=== PATIENT | female | born 1985 | race Caucasian/White ===

== ENCOUNTER 2018-02-01 21:30 | Emergency (ER) | END 2018-02-01 23:48 | disposition left against medical advice (07) ==

== ENCOUNTER 2018-04-27 22:36 | Emergency (ER) | END 2018-04-28 00:35 | disposition home or self-care (01) ==

== ENCOUNTER 2018-08-10 17:23 | Emergency (ER) | END 2018-08-11 00:25 | disposition home or self-care (01) ==

== ENCOUNTER 2018-09-05 14:28 | Emergency (ER) | payer SELFPAY ==
[~2018-09-05] VITALS: Ht 172.7 cm; Wt 95.2 kg
[~2018-09-05 14:28] MED LIST: LORA1TAB PO
[2018-09-05 14:31] VITALS: BP 124/57; PULSE 85; RESP 20; Ht 172.7 cm; Wt 95.2 kg
[2018-09-05] MEDS ORDERED: D-ME473S2 PO (17:06)
[2018-09-05] MEDS ORDERED: IBUP-1542 PO (17:06)
[2018-09-05] MEDS ORDERED: AZIT250T PO (17:06)
--- NOTE | 2018-09-05 17:09 | ERD ---
ER Documentation Chief Complaint Chief Complaint Complains of cough x 2 days HPI 33-year-old female presents with productive cough for last 3 days. She denies any fevers. She has body aches. She denies any chest pain, vomiting, abdominal pain. She is worried about spreading infection to her family. ROS All systems reviewed and are negative except as per history of present illness. Medications Home Meds Active Scripts Azithromycin* (Zithromax*) 250 Mg Tablet, 250 MG PO .ZPACK DIRECTED, #6 TAB TAKE 500 MG (2 TABS) THE FIRST DAY THEN 250 MG (1 TAB) DAYS 2-5 Prov:HERBIE ESCAMILLA MD 09/05/18 Ibuprofen* (Motrin*) 600 Mg Tab, 600 MG PO Q6, #20 TAB Prov:HERBIE ESCAMILLA MD 09/05/18 Dextromethorphan Hb-Promethazine Hcl* (Promethazine DM* Syrup) 473 Ml Syrup, 5 ML PO Q6 PRN for COUGH for 5 Days, ML Prov:HERBIE ESCAMILLA MD 09/05/18 Lorazepam* (Lorazepam*) 1 Mg Tablet, 1 MG PO Q8H PRN for ANXIETY, #10 TAB Prov:GILBERTO KIRKLAND 08/10/18 Allergies Allergies: Coded Allergies: No Known Allergy (Unverified , 09/05/18) PMhx/Soc Medical and Surgical Hx: pt denies Medical Hx, pt denies Surgical Hx History of Surgery: No Hx Neurological Disorder: No Hx Respiratory Disorders: No Hx Cardiac Disorders: No Hx Miscellaneous Medical Probl: No Hx Alcohol Use: Yes (OCCASSIONAL) Hx Substance Use: No Hx Tobacco Use: No FmHx Family History: No diabetes, No coronary disease, No other Physical Exam Vitals Vital Signs Date Temp Pulse Resp B/P (MAP) Pulse Ox O2 O2 Flow FiO2 Time Delivery Rate 09/05/18 98.4 85 20 124/57 98 14:31 (79) Physical Exam Const: No acute distress Head: Atraumatic Eyes: Normal Conjunctiva ENT: Normal External Ears, Nose and Mouth. TMs and oropharynx normal. Neck: Full range of motion. No meningismus. Resp: Clear to auscultation bilaterally. Coarse cough without rales, wheezing or retractions. Cardio: Regular rate and rhythm, no murmurs Abd: Soft, non tender, non distended. Normal bowel sounds Skin: No petechiae or rashes Back: No midline or flank tenderness Ext: No cyanosis, or edema Neur: Awake and alert Psych: Normal Mood and Affect Procedures/MDM She presents with URI symptoms and productive cough for last 3 days patient likely has viral URI. She will treated with promethazine and ibuprofen. Patient will be administered by request prescription for Zithromax to hold for 3-4 days. She may take for more productive cough otherwise allow viral illness to resolve. She has no evidence of hypoxemia, rest or distress, signs of pneumonia on exam. She has no complaints of chest pain or abdominal pain. The patient was stable with no new complaints during the ER course. Clinically, there is no current evidence to suggest meningitis, sepsis, acute abdomen, pneumonia, stroke, acute coronary syndrome, pulmonary embolism, aortic dissection or any other emergent condition appearing to require further evaluation or hospitalization. Patient counseled regarding my diagnostic impression and care plan. Prior to discharge all questions answered. Pt agrees w ith treatment plan and understands strict return precautions. Pt is instructed to follow up with primary care provider within 24-48 hours. Precautionary instructions provided including instructions to return to the ER if not improving or for any worsening or changing symptoms or concerns. Disclaimer: Inadvertent spelling and grammatical errors are likely due to EHR/dictation software use and do not reflect on the overall quality of patient care. Also, please note that the electronic time recorded on this note does not necessarily reflect the actual time of the patient encounter. Departure Diagnosis: Primary Impression: Cough Condition: Stable Patient Instructions: Bronchitis, Antiobiotic Treatment (Adult), Bronchitis, No Antibiotic (Adult) Referrals: NO PRIMARY,CARE PHYSICIAN (PCP) Additional Instructions: Okay to hold antibiotics 3-4 days take for increasing productive cough. Recheck otherwise for new or worsening symptoms. May be viral illness which will resolve without antibiotics. HERBIE ESCAMILLA MD Sep 05, 2018 17:09
== END 2018-09-05 17:12 | disposition home or self-care (01) ==
LOC: FTE 14:28
DX: R05 Cough (principal)
CPT/HCPCS: 99283

== ENCOUNTER 2018-11-10 18:51 | Emergency (ER) | payer SELFPAY ==
[~2018-11-10] VITALS: Ht 165.1 cm; Wt 93.9 kg
[~2018-11-10 18:51] MED LIST changes: +AZIT250T PO; +D-ME473S2 PO; +IBUP-1542 PO
[2018-11-10 19:32] VITALS: Ht 165.1 cm; Wt 93.9 kg
--- NOTE | 2018-11-10 23:05 | ERD ---
ER Documentation Chief Complaint Chief Complaint headache/blurry vision x 2 days. hx of migraine headache HPI This is a 33-year-old female who presents here in emerge department with comp laints of headache, blurry vision for about 2 days. No changes in her reading. No use of glasses or contact lenses. Stated that she has history of migraine. Stated that is similar to her migraine attacks. LMP: Stated it was last month. . Denies that this is the worst headache of her life, head injury, loss of consciousness, dizziness, neck pain, neck stiffness, throat pain, difficulty swallowing, difficulty breathing lying flat, shoulder pain, chest pain, back pain, abdominal pain, nausea, vomiting, constipation, diarrhea, urinary symptoms, or possibility being , loss of bowel and bladder control, trauma, injury, falls, difficulty walking due to pain, numbness or tingling sensation, calf pain, recent travel, recent major surgery in the last 3 weeks, calf pain, recent long travel, recent exposure to any illness, recent antibiotic use in the last 3 months, fever, chills, seizures. Past medical history: Surgical history: Social: Denies smoking, use of alcoholic beverages, use of illegal drugs. ROS All systems reviewed and are negative except as per history of present illness. Medications Home Meds Active Scripts Nobeelbgst-Fcpfhybblilpl-Bdhifflx* (Fioricet*) 50-300-40 Mg Capsule, 1 CAP PO Q4H PRN for migraine attack, #15 CAP Prov:PASILABAN,KLAR F 11/10/18 Ibuprofen* (Motrin*) 800 Mg Tab, 800 MG PO Q6H PRN for PAIN AND OR ELEVATED TEMP, #30 TAB Prov:PASILABAN,KLAR F 11/10/18 Meclizine Hcl* (Antivert*) 12.5 Mg Tab, 12.5 MG PO Q6H PRN for DIZZINESS, #20 TAB Prov:PASILABAN,KLAR F 11/10/18 Diphenhydramine Hcl* (Benadryl*) 25 Mg Cap, 25 MG PO Q6 PRN for ITCHING/RASH, #30 TAB Prov:PASILABAN,KLAR F 11/10/18 Metoclopramide* (Reglan*) 10 Mg Tablet, 10 MG PO Q6 PRN for NAUSEA AND/OR VOMITING, #20 TAB Prov:PASILABAN,KLAR F 11/10/18 Azithromycin* (Zithromax*) 250 Mg Tablet, 250 MG PO .ZPACK DIRECTED, #6 TAB TAKE 500 MG (2 TABS) THE FIRST DAY THEN 250 MG (1 TAB) DAYS 2-5 Prov:HERBIE ESCAMILLA MD 09/05/18 Ibuprofen* (Motrin*) 600 Mg Tab, 600 MG PO Q6, #20 TAB Prov:HERBIE ESCAMILLA MD 09/05/18 Dextromethorphan Hb-Promethazine Hcl* (Promethazine DM* Syrup) 473 Ml Syrup, 5 ML PO Q6 PRN for COUGH for 5 Days, ML Prov:HERBIE ESCAMILLA MD 09/05/18 Lorazepam* (Lorazepam*) 1 Mg Tablet, 1 MG PO Q8H PRN for ANXIETY, #10 TAB Prov:GILBERTO KIRKLAND 08/10/18 Allergies Allergies: Coded Allergies: No Known Allergy (Unverified , 09/05/18) PMhx/Soc History of Surgery: No Hx Neurological Disorder: No Hx Respiratory Disorders: No Hx Cardiac Disorders: No Hx Miscellaneous Medical Probl: No Hx Alcohol Use: Yes (OCCASSIONAL) Hx Substance Use: No Hx Tobacco Use: No Physical Exam Vitals Physical Exam No vesicular lesions. Const: No acute distress Head: Atraumatic. Normocephalic. Scalp is intact. No signs of direct trauma to head. No vesicular lesions. Eyes: Normal Conjunctiva. No visual field loss. There is mild light sensitivity. No icterus. No conjunctival injection. ENT: Normal External Ears, Nose and Mouth. Bilateral ears: TMs are not erythematous. No bleeding. No discharge. No hearing loss. No mastoid tenderness. Nose: There is no frontal or maxillary sinus tenderness to palpation. Throat: Uvula is in midline and nondisplaced. Tonsils are +1 bilaterally without redness without exudates. Tolerating secretions. Patent airway. Speaks full and clear sentences. No tripoding. Neck: Full range of motion. No meningismus. No nuchal rigidity. No signs of meningeal irritation. Resp: Clear to auscultation bilaterally. Cardio: Regular rate and rhythm, no murmurs Abd: Soft, non tender, non distended. Normal bowel sounds. Skin: No petechiae or rashes. Color appears normal for ethnicity. No skin tenting. No signs of severe dehydration.. Back: No midline or flank tenderness Ext: No cyanosis, or edema Neur: Awake and alert. No obvious facial droop. Equal pipe turner. Equal strength in bilateral upper and lower extremities. Follows commands. Able to bear radha ght left lower extremity. Able to bear weight on right lower extremity. Romberg test is negative. No neurological deficit. Psych: Normal Mood and Affect Results 24 hrs Laboratory Tests Test 11/10/18 23:12 11/10/18 23:16 Urine Color YELLOW Urine Clarity SLIGHTLY CLOUDY Urine pH 6.0 Urine Specific [place] 1.018 Urine Ketones NEGATIVE mg/dL Urine Nitrite NEGATIVE mg/dL Urine Bilirubin NEGATIVE mg/dL Urine Urobilinogen NEGATIVE mg/dL Urine Leukocyte Esterase NEGATIVE Marcie/ul Urine Microscopic RBC 2 /HPF Urine Microscopic WBC 1 /HPF Urine Squamous Epithelial Cells FEW /HPF Urine Bacteria FEW /HPF Urine Mucus FEW /HPF Urine Hemoglobin NEGATIVE mg/dL Urine Glucose NEGATIVE mg/dL Urine Total Protein NEGATIVE mg/dl POC Beta HCG, Qualitative NEGATIVE Current Medications Medications Dose Sig/Sonia Start Time Status Last (Trade) Ordered Route PRN Stop Time Admin Dose Reason Admin Sodium 1,000 ml @ Q1H ONCE 11/10/18 DC 11/10/18 Chloride 1,000 mls/hr IV 23:30 23:24 11/11/18 00:29 25 mg ONCE ONCE 11/10/18 DC 11/10/18 Diphenhydrami IV 23:30 23:24 ne HCl 11/10/18 23:31 (Benadryl) 10 mg ONCE ONCE 11/10/18 DC 11/10/18 Metoclopramid IV 23:30 23:24 e HCl 11/10/18 23:31 (Reglan) Sumatriptan 6 mg ONCE ONCE 11/10/18 DC 11/11/18 Succinate SC 23:30 00:22 (Imitrex) 11/10/18 23:31 Procedures/MDM Diagnostic tests: POC urine : Negative. Urinalysis: Reviewed. ED visual acuity: Right eye: 20/70. Left eye: 20/40. Bilateral eyes: 20/40. Treatment: Saline lock. Normal saline IV bolus. Reglan IV. Benadryl IV. Imitrex IM. Re-evaluation: No visual field loss. Denies headache. Denies dizziness. Romberg test is negative. Negative. No neurological deficit. Ambulatory with steady gait. Differential diagnosis I have low suspicion for subarachnoid hemorrhage, stroke, subdural hematoma, epidural hematoma, meningitis or sepsis. Final diagnosis: Migraine. Prescription: Antivert. Reglan. Fioricet. Motrin. Follow-up with PCP in the next 24-48 hours. PCP to refer patient to neurologist if symptoms persist. Come back here in the emergency department for any new symptoms or any worsening symptoms. All questions and concerns were answered. Patient and family members verbalized understanding and agreed with plan of care. Hemodynamically stable on discharge. Departure Diagnosis: Primary Impression: Migraine Condition: Stable Additional Instructions: Follow-up with PCP in the next 24-48 hours. PCP to refer patient to neurologist if symptoms persist. Come back here in the emergency department for any new symptoms or any worsening symptoms. GIOVANNY TRAMMELL Nov 10, 2018 23:05
[2018-11-10] MEDS ORDERED: SOD CHLORIDE 0.9% 1,000 ML IV ONE (23:30)
[2018-11-10] MEDS ORDERED: SUMATRIPTAN 6 MG/0.5 ML INJ SC ONE (23:30)
[2018-11-10] MEDS ORDERED: DIPHENHYDRAMINE 50 MG INJ IV ONE (23:30)
[2018-11-10] MEDS ORDERED: METOCLOPRAMIDE 10 MG INJ IV ONE (23:30)
[2018-11-10] MEDS ORDERED: METO10TA92 PO (23:37)
[2018-11-10] MEDS ORDERED: BEN25 PO (23:37)
[2018-11-10] MEDS ORDERED: IBUP800T48 PO (23:37)
[2018-11-10] MEDS ORDERED: MECL12.574 PO (23:37)
[2018-11-10] MEDS ORDERED: BUTA1CAP38 PO (23:38)
[2018-11-11 00:50] VITALS: BP 115/63; PULSE 72; RESP 18
== END 2018-11-11 00:52 | disposition home or self-care (01) ==
LOC: FTE 18:51
DX: G43.909 Migraine, unspecified, not intractable, without status migrainosus (principal)
CPT/HCPCS: 81001; 81025; 96372; 96374; 96375; 99284; J1200; J2765; J3030; J7030; 81003

== ENCOUNTER 2018-12-12 15:21 | Emergency (ER) | payer SELFPAY ==
[~2018-12-12] VITALS: Ht 170.2 cm; Wt 95.9 kg
[~2018-12-12 15:21] MED LIST changes: +BEN25 PO; +BUTA1CAP38 PO; +IBUP800T48 PO; +MECL12.574 PO; +METO10TA92 PO
[2018-12-12 15:40] VITALS: BP 124/63; PULSE 75; RESP 18; Ht 170.2 cm; Wt 95.9 kg
[2018-12-12] MEDS ORDERED: MUPI22OI2 TOP (16:01)
--- NOTE | 2018-12-12 16:10 | ERD ---
ER Documentation Chief Complaint Chief Complaint right 4th finger laceration yesterday in shower HPI 33-year-old female no significant past medical history presents for right fourth finger laceration x1 day. She states that she is in the shower and hit her right hand. There is no active bleeding currently. She has about 8 out of 10 pain with movement. There is only mild pain without movement. No other modifying factors noted. No treatments tried at home. ROS All systems reviewed and are negative except as per history of present illness. Medications Home Meds Active Scripts Mupirocin* (Bactroban*) 2% -22 Gram Oint...g., 1 APPLIC TOP BID for laceration for 7 Days, #1 TUB SITE OF APPLICATION: Prov:PATRICKROMÁN 12/12/18 Lkqlwgxhiy-Usivcomznqcvz-Xkuklnro* (Fioricet*) 50-300-40 Mg Capsule, 1 CAP PO Q4H PRN for migraine attack, #15 CAP Prov:PASILABAN,CAMAR F 11/10/18 Ibuprofen* (Motrin*) 800 Mg Tab, 800 MG PO Q6H PRN for PAIN AND OR ELEVATED TEMP, #30 TAB Prov:PASILABAN,CAMAR F 11/10/18 Meclizine Hcl* (Antivert*) 12.5 Mg Tab, 12.5 MG PO Q6H PRN for DIZZINESS, #20 TAB Prov:PASILABAN,CAMAR F 11/10/18 Diphenhydramine Hcl* (Benadryl*) 25 Mg Cap, 25 MG PO Q6 PRN for ITCHING/RASH, # 30 TAB Prov:PASILABANCAMAR F 11/10/18 Metoclopramide* (Reglan*) 10 Mg Tablet, 10 MG PO Q6 PRN for NAUSEA AND/OR VOMITING, #20 TAB Prov:PASILABAN,KLAR F 11/10/18 Azithromycin* (Zithromax*) 250 Mg Tablet, 250 MG PO .ArronPACK DIRECTED, #6 TAB TAKE 500 MG (2 TABS) THE FIRST DAY THEN 250 MG (1 TAB) DAYS 2-5 Prov:HERBIE ESCAMILLA MD 09/05/18 Ibuprofen* (Motrin*) 600 Mg Tab, 600 MG PO Q6, #20 TAB Prov:HERBIE ESCAMILLA MD 09/05/18 Dextromethorphan Hb-Promethazine Hcl* (Promethazine DM* Syrup) 473 Ml Syrup, 5 ML PO Q6 PRN for COUGH for 5 Days, ML Prov:HERBIE ESCAMILLA MD 09/05/18 Lorazepam* (Lorazepam*) 1 Mg Tablet, 1 MG PO Q8H PRN for ANXIETY, #10 TAB Prov:GILBERTO KIRKLANDNicolle 08/10/18 Allergies Allergies: Coded Allergies: No Known Allergy (Unverified , 09/05/18) PMhx/Soc History of Surgery: No Hx Neurological Disorder: No Hx Respiratory Disorders: No Hx Cardiac Disorders: No Hx Miscellaneous Medical Probl: No Hx Alcohol Use: Yes (OCCASSIONAL) Hx Substance Use: No Hx Tobacco Use: No FmHx Family History: No coronary disease Physical Exam Vitals Vital Signs Date Temp Pulse Resp B/P (MAP) Pulse Ox O2 O2 Flow FiO2 Time Delivery Rate 12/12/18 98.2 75 18 124/63 98 15:40 (83) Physical Exam Const: No acute distress Resp: Clear to auscultation bilaterally Cardio: Regular rate and rhythm, no murmurs, cap refill less than 2 seconds in all fingers of the right hand Abd: Soft, non tender, non distended. Normal bowel sounds Skin: Right hand fourth finger distal laceration, superficial about 0.5 cm Back: No midline or flank tenderness Ext: No cyanosis, or edema Neur: Awake and alert, bilateral sensation of all fingers intact Psych: Normal Mood and Affect Procedures/MDM Medical Decision Making: Patient presented for right hand fourth finger superficial laceration. The laceration is superficial for sutures or Steri-Strips. Bacitracin was applied in the ER. Patient advised regarding wound care. Prescription(s): Patient given prescription for supportive medication(s). Patient advised to follow up with PCP in 1-2 days. Patient advised to return to ED for new or worsening symptoms. Patient stable on discharge from the ED. Disclaimer: Inadvertent spelling and grammatical errors are likely due to EHR/dictation software use and do not reflect on the overall quality of patient care. Also, please note that the electronic time recorded on this note does not necessarily reflect the actual time of the patient encounter. Departure Diagnosis: Primary Impression: Laceration Condition: Fair Patient Instructions: Laceration, All Referrals: COMMUNITY CLINICS YOU HAVE RECEIVED A MEDICAL SCREENING EXAM AND THE RESULTS INDICATE THAT YOU DO NOT HAVE A CONDITION THAT REQUIRES URGENT TREATMENT IN THE EMERGENCY DEPARTMENT. FURTHER EVALUATION AND TREATMENT OF YOUR CONDITION CAN WAIT UNTIL YOU ARE SEEN IN YOUR DOCTORS OFFICE WITHIN THE NEXT 1-2 DAYS. IT IS YOUR RESPONSIBILITY TO MAKE AN APPOINTMENT FOR FOLOW-UP CARE. IF YOU HAVE A PRIMARY DOCTOR --you should call your primary doctor and schedule an appointment IF YOU DO NOT HAVE A PRIMARY DOCTOR YOU CAN CALL OUR PHYSICIAN REFERRAL HOTLINE AT IF YOU CAN NOT AFFORD TO SEE A PHYSICIAN YOU CAN CHOSE FROM THE FOLLOWING [facility] [address] [facility]. [facility] [address] [facility]. [facility] [address] [facility] [facility] [address] [facility] [facility] [address] [facility]. [facility]. [address] Additional Instructions: Call your primary care doctor TOMORROW for an appointment during the next 1-2 days.See the doctor sooner or return here if your condition worsens before your appointment time. ROMÁN NGUYEN DO Dec 12, 2018 16:10
== END 2018-12-12 16:05 | disposition home or self-care (01) ==
LOC: FTE 15:21 → E/R 16:05
DX: S61.214A Laceration without foreign body of right ring finger without damage to nail, initial encounter (principal); W22.8XXA Striking against or struck by other objects, initial encounter; Y92.9 Unspecified place or not applicable
CPT/HCPCS: 99283

== ENCOUNTER 2019-02-10 17:51 | Emergency (ER) | payer SELFPAY ==
[~2019-02-10] VITALS: Ht 165.1 cm; Wt 93.4 kg
[~2019-02-10 17:51] MED LIST changes: +MUPI22OI2 TOP
[2019-02-10 17:54] VITALS: BP 121/58; PULSE 68; RESP 16; Ht 165.1 cm; Wt 93.4 kg
--- NOTE | 2019-02-10 20:29 | ERD ---
ER Documentation Chief Complaint Chief Complaint Pt reports slip and fall in tub this morning c/o L hand and side pain HPI Patient is a 34-year-old female, no past medical history, presents the ER for concerns of left hand pain and left-sided hip pain after a slip and fall injury while in the bathtub this morning. Patient states she was getting up in the bathtub when she slipped. Patient used her left hand to grab the pull however she fell. Patient reports left-sided hip pain. Patient denies any back pain, neck pain, saddle anesthesia, urinary incontinence, stool incontinence, hematuria. Patient denies feeling dizzy or lightheaded prior to fall injury. Patient denies any chest pain, shortness of breath, head injury, nausea, vomiting, LOC. Patient is able to ambulate without any difficulty. Patient reports taking ibuprofen prior to arrival. ROS All systems reviewed and are negative except as per history of present illness. Medications Home Meds Active Scripts Mupirocin* (Bactroban*) 2% -22 Gram Oint...g., 1 APPLIC TOP BID for laceration for 7 Days, #1 TUB SITE OF APPLICATION: Prov:ROMÁN NGUYEN 12/12/18 Wgftscxtqh-Bgmssftsztfbg-Jmpsejim* (Fioricet*) 50-300-40 Mg Capsule, 1 CAP PO Q4H PRN for migraine attack, #15 CAP Prov:GIOVANNY TRAMMELL 11/10/18 Ibuprofen* (Motrin*) 800 Mg Tab, 800 MG PO Q6H PRN for PAIN AND OR ELEVATED TEMP, #30 TAB Prov:GIOVANNY TRAMMELL 11/10/18 Meclizine Hcl* (Antivert*) 12.5 Mg Tab, 12.5 MG PO Q6H PRN for DIZZINESS, #20 TAB Prov:GREGORIOILAGIOVANNY WAYNE 11/10/18 Diphenhydramine Hcl* (Benadryl*) 25 Mg Cap, 25 MG PO Q6 PRN for ITCHING/RASH, #30 TAB Prov:GIOVANNY TRAMMELL 11/10/18 Metoclopramide* (Reglan*) 10 Mg Tablet, 10 MG PO Q6 PRN for NAUSEA AND/OR VOMITING, #20 TAB Prov:GIOVANNY TRAMMELL 11/10/18 Azithromycin* (Zithromax*) 250 Mg Tablet, 250 MG PO .LEATHA DIRECTED, #6 TAB TAKE 500 MG (2 TABS) THE FIRST DAY THEN 250 MG (1 TAB) DAYS 2-5 Prov:HERBIE ESCAMILLA MD 09/05/18 Ibuprofen* (Motrin*) 600 Mg Tab, 600 MG PO Q6, #20 TAB Prov:HERBIE ESCAMILLA MD 09/05/18 Dextromethorphan Hb-Promethazine Hcl* (Promethazine DM* Syrup) 473 Ml Syrup, 5 ML PO Q6 PRN for COUGH for 5 Days, ML Prov:HERBIE ESCAMILLA MD 09/05/18 Lorazepam* (Lorazepam*) 1 Mg Tablet, 1 MG PO Q8H PRN for ANXIETY, #10 TAB Prov:GILBERTO KIRKLAND 08/10/18 Allergies Allergies: Coded Allergies: No Known Allergy (Unverified , 09/05/18) PMhx/Soc Medical and Surgical Hx: pt denies Medical Hx, pt denies Surgical Hx History of Surgery: No Hx Neurological Disorder: No Hx Respiratory Disorders: No Hx Cardiac Disorders: No Hx Miscellaneous Medical Probl: No Hx Alcohol Use: Yes (OCCASSIONAL) Hx Substance Use: No Hx Tobacco Use: No Smoking Status: Never smoker FmHx Family History: No diabetes Physical Exam Vitals Vital Signs Date Temp Pulse Resp B/P (MAP) Pulse Ox O2 O2 Flow FiO2 Time Delivery Rate 02/10/19 98.3 68 16 121/58 100 17:54 (79) Physical Exam GENERAL: Well-developed, well-nourished female. Appears in no acute distress. HEAD: Normocephalic, atraumatic. EYES: Pupils are equally reactive bilaterally. EOMs grossly intact. No conjunctival erythema. ENT: Moist mucous membranes. No uvula deviation. No kissing tonsils. NECK: Supple. No meningismus. Normal range of motion of the neck. LUNG: Clear to auscultation bilaterally. No rhonchi, wheezing, rales or coarse breath sounds. HEART: Regular rate and rhythm. No murmurs, rubs or gallops. BACK: No midline tenderness. Tender to palpation over the right lumbar paraspinal muscles. Hip: No deformity, step-offs, erythema, ecchymosis or swelling. Skin intact. Tender to palpation over the posterior iliac crest. Able to internally and externally rotate without any difficulty.. Stable gait. EXTREMITIES: Equal pulses bilaterally. No peripheral clubbing, cyanosis or edema. No unilateral leg swelling. NEUROLOGIC: Alert and oriented. Moving all four extremities without any difficulty. Normal speech. Steady gait. SKIN: Normal color. Warm and dry. No rashes or lesions. Results 24 hrs Laboratory Tests Test 02/10/19 20:44 POC Beta HCG, Qualitative NEGATIVE Procedures/MDM ED COURSE: The patient was stable throughout ED course. I kept the patient and/or family informed of laboratory and diagnostic imaging results throughout the ED course. DIAGNOSTIC IMAGING: Read by radiologist. DIAGNOSTIC IMAGING REPORT Patient: STANISLAV BEAUCHAMP : 1985 Age: 34 Sex: F MR #: [id number] DOS: 02/10/192020 Ordering MD: TEODORO REINA PA-C Location: [facility] Room/Bed: PROCEDURE: Left hand x-ray CLINICAL INDICATION: Pain status post fall TECHNIQUE: AP, lateral and oblique views of the left hand were obtained. COMPARISON: None FINDINGS: There is normal mineralization. No acute fracture or dislocation is seen. There are no significant degenerative changes. There is no significant soft tissue swelling. IMPRESSION: No acute abnormality seen. RPTAT: HJES .Sergoi Randhawa MD, Date Time Electronically viewed and signed by .Sergio Randhawa MD, on 02/10/2019 22:11 .S/ CC: TEODORO REINA PA-C [id number] DIAGNOSTIC IMAGING REPORT Patient: STANISLAV BEAUCHAMP : 1985 Age: 34 Sex: F MR #: [id number] DOS: 02/10/192020 Ordering MD: TEODORO REINA PA-C Location: [facility] Room/Bed: PROCEDURE: XR Hip. CLINICAL INDICATION: pain s/p fall TECHNIQUE: AP and lateral views of the left hip were performed. COMPARISON: None. FINDINGS: No acute fracture or dislocation is seen. Likely small phleboliths in left lower pelvis. IMPRESSION: No acute abnormality seen. RPTAT: HJES .Sergio Randhawa MD, Date Time Electronically viewed and signed by .Sergio Randhawa MD, on 02/10/2019 22:10 .S/ CC: TEODORO REINA PA-C [id number] MEDICAL DECISION MAKING: Patient is a 34-year-old female with no past medical history, presents the ER for concerns of left hand pain and left hip pain after slip and fall injury wh ile in the bathroom earlier today. Patient denies any loss conscious. Patient denies head injury. Vital signs were reviewed. Patient is afebrile. Patient was not hypoxic. Patient was hemodynamically stable. X-ray imaging of the patient's left hand and left hip are unremarkable. See formal report above. At this time the patient presentation is consistent with left hand pain and hip pain after fall injury. Low suspicion for fracture, dislocation, intracranial hemorrhage, fracture, spinal injury, cauda equina syndrome. Patient was nontoxic, [id number] prior to discharge. PRESCRIPTION: Ibuprofen DISCHARGE: At this time, patient is stable for discharge and outpatient management. I have instructed the patient to follow-up with his/her primary care physician in 1-2 days. I have discussed with the patient the possibility of needing to see a specialist for further workup and imaging studies if symptoms persist. I have instructed the patient to promptly return to the ER for any new or worsening symptoms including increased pain, fever, nausea, vomiting, weakness or LOC. The patient and/or family expressed understanding of and agreement with this plan. All questions were answered. Home care instructions were provided. Disclaimer: Inadvertent spelling and grammatical errors are likely due to EHR/dictation software use and do not reflect on the overall quality of patient care. Also, please note that the electronic time recorded on this note does not necessarily reflect the actual time of the patient encounter. Departure Diagnosis: Primary Impression: Fall Encounter type: initial encounter Qualified Codes: W19.XXXA - Unspecified fall, initial encounter Additional Impressions: Left hip pain Left hand pain Condition: Fair Patient Instructions: Fall Prevention Referrals: [facility] YOU HAVE RECEIVED A MEDICAL SCREENING EXAM AND THE RESULTS INDICATE THAT YOU DO NOT HAVE A CONDITION THAT REQUIRES URGENT TREATMENT IN THE EMERGENCY DEPARTMENT. FURTHER EVALUATION AND TREATMENT OF YOUR CONDITION CAN WAIT UNTIL YOU ARE SEEN IN YOUR DOCTORS OFFICE WITHIN THE NEXT 1-2 DAYS. IT IS YOUR RESPONSIBILITY TO MAKE AN APPOINTMENT FOR FOLOW-UP CARE. IF YOU HAVE A PRIMARY DOCTOR --you should call your primary doctor and schedule an appointment IF YOU DO NOT HAVE A PRIMARY DOCTOR YOU CAN CALL OUR PHYSICIAN REFERRAL HOTLINE AT IF YOU CAN NOT AFFORD TO SEE A PHYSICIAN YOU CAN CHOSE FROM THE FOLLOWING [facility] [address] [facility]. [facility] [address] [facility]. [facility] [address] [facility] [address] [facility]. [facility] [address] [facility] [address] [facility] [facility] YOU HAVE RECEIVED A MEDICAL SCREENING EXAM AND THE RESULTS INDICATE THAT YOU DO NOT HAVE A CONDITION THAT REQUIRES URGENT TREATMENT IN THE EMERGENCY DEPARTMENT. FURTHER EVALUATION AND TREATMENT OF YOUR CONDITION CAN WAIT UNTIL YOU ARE SEEN IN YOUR DOCTORS OFFICE WITHIN THE NEXT 1-2 DAYS. IT IS YOUR RESPONSIBILITY TO MAKE AN APPOINTMENT FOR FOLOW-UP CARE. IF YOU HAVE A PRIMARY DOCTOR --you should call your primary doctor and schedule and appointment IF YOU DO NOT HAVE A PRIMARY DOCTOR YOU CAN CALL OUR PHYSICIAN REFERRAL HOTLINE AT . IF YOU CAN NOT AFFORD TO SEE A PHYSICIAN YOU CAN CHOSE FROM THE FOLLOWING [facility] INSTITUTIONS: [facility] [address] [place] [address] [facility] [address] [place] [address] [facility] + [facility] [address] [place] [address] Additional Instructions: Call your primary care doctor TOMORROW for an appointment during the next 1-2 days.See the doctor sooner or return here if your condition worsens before your appointment time. TEODORO REINA PA-C Feb 10, 2019 20:29
[2019-02-10] MEDS ORDERED: IBUP-1542 PO (22:23)
== END 2019-02-11 00:33 | disposition left against medical advice (07) ==
LOC: FTE 17:51
DX: M25.552 Pain in left hip (principal); M79.642 Pain in left hand
CPT/HCPCS: 73510; 81025

== ENCOUNTER 2019-02-23 11:00 | Emergency (ER) | payer SELFPAY ==
[~2019-02-23] VITALS: Ht 167.6 cm; Wt 92.9 kg
[2019-02-23 11:11] VITALS: Ht 167.6 cm; Wt 92.9 kg
[2019-02-23] MEDS ORDERED: ONDANSETRON (ODT) 4 MG TAB ODT STA (11:38)
[2019-02-23] MEDS ORDERED: HYDROCODONE/APAP (5/325) TAB PO ONE (12:00)
[2019-02-23] MEDS ORDERED: NAPR-985 PO (12:50)
--- NOTE | 2019-02-23 13:10 | ERD ---
ER Documentation Chief Complaint Chief Complaint C/O RIGHT KNEE PAIN S/P FELL YESTERDAY; CMS INTACT, ABLE TO WALK. HPI 34-year-old female presenting with knee pain. Patient states that she fell down 2 stairs this morning and had pain to her medial right knee. She has no numbness or tingling. Has not taken medications for her symptoms. Is able to ambulate but feels pain in the medial aspect. Denies medical problems. NKDA. Surgical history denies. Social history denies ROS All systems reviewed and are negative except as per history of present illness. Medications Home Meds Active Scripts Naproxen* (Naprosyn*) 500 Mg Tablet, 500 MG PO BID PRN for PAIN AND/OR INFLAMMATION, #30 TAB Prov:AYO SUMMERS PA-C 02/23/19 Ibuprofen* (Motrin*) 600 Mg Tab, 600 MG PO Q6, #30 TAB Prov:TEODORO REINA PA-C 02/10/19 Mupirocin* (Bactroban*) 2% -22 Gram Oint...g., 1 APPLIC TOP BID for laceration for 7 Days, #1 TUB SITE OF APPLICATION: Prov:PATRICKROMÁN 12/12/18 Ohmxuyaiac-Fioxqvwuwhfhj-Zsljykos* (Fioricet*) 50-300-40 Mg Capsule, 1 CAP PO Q4H PRN for migraine attack, #15 CAP Prov:PASILAGIOVANNY WAYNE F 11/10/18 Ibuprofen* (Motrin*) 800 Mg Tab, 800 MG PO Q6H PRN for PAIN AND OR ELEVATED TE MP, #30 TAB Prov:PASILABANGIOVANNY F 11/10/18 Meclizine Hcl* (Antivert*) 12.5 Mg Tab, 12.5 MG PO Q6H PRN for DIZZINESS, #20 TAB Prov:PASILABANCAMAR F 11/10/18 Diphenhydramine Hcl* (Benadryl*) 25 Mg Cap, 25 MG PO Q6 PRN for ITCHING/RASH, #30 TAB Prov:PASILABANCAMAR F 11/10/18 Metoclopramide* (Reglan*) 10 Mg Tablet, 10 MG PO Q6 PRN for NAUSEA AND/OR VOMITING, #20 TAB Prov:PASILABANCAMAR F 11/10/18 Azithromycin* (Zithromax*) 250 Mg Tablet, 250 MG PO .ZPACK DIRECTED, #6 TAB TAKE 500 MG (2 TABS) THE FIRST DAY THEN 250 MG (1 TAB) DAYS 2-5 Prov:HERBIE ESCAMILLA MD 09/05/18 Ibuprofen* (Motrin*) 600 Mg Tab, 600 MG PO Q6, #20 TAB Prov:HERBIE ESCAMILLA MD 09/05/18 Dextromethorphan Hb-Promethazine Hcl* (Promethazine DM* Syrup) 473 Ml Syrup, 5 ML PO Q6 PRN for COUGH for 5 Days, ML Prov:HERBIE ESCAMILLA MD 09/05/18 Lorazepam* (Lorazepam*) 1 Mg Tablet, 1 MG PO Q8H PRN for ANXIETY, #10 TAB Prov:GILBERTO KIRKLAND 08/10/18 Allergies Allergies: Coded Allergies: No Known Allergy (Unverified , 09/05/18) PMhx/Soc History of Surgery: No ( X 3 ) Anesthesia Reaction: No Hx Neurological Disorder: No Hx Respiratory Disorders: No Hx Cardiac Disorders: No Hx Psychiatric Problems: No Hx Miscellaneous Medical Probl: No Hx Alcohol Use: Yes (OCCASSIONAL) Hx Substance Use: No Hx Tobacco Use: No Smoking Status: Never smoker FmHx Family History: No diabetes, No coronary disease, No other Physical Exam Vitals Vital Signs Date Temp Pulse Resp B/P (MAP) Pulse Ox O2 O2 Flow FiO2 Time Delivery Rate 02/23/19 97.5 77 18 118/49 98 11:11 (72) Physical Exam GENERAL: The patient is well-appearing, well-nourished, in no acute distress CHEST: Clear to auscultation bilaterally. There are no rales, wheezes or rhonchi. HEART: Regular rate and rhythm. No murmurs, clicks, rubs or gallops. No S3 or S4. EXTREMITIES: Tender to palpation to medial aspect of right knee. No valgus or varus deformity and no swelling. Strength 5 out of 5 with flexion and extension. NEUROLOGIC: Alert and oriented. Cranial nerves II through XII intact. Motor strength in all 4 extremities with 5 out of 5 strength. Sensation grossly intact. Normal speech and gait. SKIN: There is no apparent rash or petechiae. The skin is warm and dry. Results 24 hrs Current Medications Medications Dose Sig/Sonia Start Time Status Last (Trade) Ordered Route PRN Stop Time Admin Dose Reason Admin 1 tab ONCE ONCE 02/23/19 DC 02/23/19 Acetaminophen PO 12:00 11:43 / 02/23/19 12:01 Hydrocodone Bitart ([place] (5/325)) Ondansetron 4 mg ONCE STAT 02/23/19 DC 02/23/19 HCl (Zofran ODT 11:38 11:44 Odt) 02/23/19 11:40 Procedures/MDM DIAGNOSTIC IMAGING REPORT Patient: STANISLAV BEAUCHAMP : 1985 Age: 34 Sex: F MR #: [id number] DOS: 02/23/19 1138 Ordering MD: ZOË SUMMERS PA-C Location: [facility]TE Room/Bed: PROCEDURE: RIGHT knee x-ray CLINICAL INDICATION: Knee pain TECHNIQUE: AP, lateral and oblique views of the knee were obtained. COMPARISON: None FINDINGS: There is normal mineralization. No acute fracture or dislocation is seen. There is no joint effusion. There are no significant degenerative changes. There is no significant soft tissue swelling. RPTAT: AA IMPRESSION: Normal x-ray of the right knee. MDM: 34-year-old female presenting with right knee pain. Patient states the x- ray is within normal limits. Patient is placed in a splint in the ER and neuro intact pre-and post splint application. I have low suspicion for acute fracture dislocation. I have low suspicion for tendon or ligament rupture however patient may have tendon injury and is recommended to follow-up with primary to obtain MRI and further imaging. Patient is discharged with strict ER precautions and told to follow-up with primary care within 1 to 2 days for close evaluation. All questions answered at discharge Departure Diagnosis: Primary Impression: Knee pain Condition: Stable Patient Instructions: Knee Sprain Referrals: [facility] YOU HAVE RECEIVED A MEDICAL SCREENING EXAM AND THE RESULTS INDICATE THAT YOU DO NOT HAVE A CONDITION THAT REQUIRES URGENT TREATMENT IN THE EMERGENCY DEPARTMENT. FURTHER EVALUATION AND TREATMENT OF YOUR CONDITION CAN WAIT UNTIL YOU ARE SEEN IN YOUR DOCTORS OFFICE WITHIN THE NEXT 1-2 DAYS. IT IS YOUR RESPONSIBILITY TO MAKE AN APPOINTMENT FOR FOLOW-UP CARE. IF YOU HAVE A PRIMARY DOCTOR --you should call your primary doctor and schedule an appointment IF YOU DO NOT HAVE A PRIMARY DOCTOR YOU CAN CALL OUR PHYSICIAN REFERRAL HOTLINE AT IF YOU CAN NOT AFFORD TO SEE A PHYSICIAN YOU CAN CHOSE FROM THE FOLLOWING [facility] CLINICS [facility] [address] [facility] [address] [facility] [address] [facility] [address] [facility] [address] [facility]. [facility] [address] [facility] Hours: Mon-Fri 9:00 AM - 5:00 PM Additional Instructions: FOLLOW UP WITH YOUR PRIMARY CARE PHYSICIAN TOMORROW.Return to this facility if you are not improving as expected. AYO SUMMERS PA-C Feb 23, 2019 13:10
== END 2019-02-23 13:22 | disposition home or self-care (01) ==
LOC: FTE 11:00
DX: M25.561 Pain in right knee (principal)
CPT/HCPCS: 73562